=== PATIENT | female | born 1995 | race Caucasian/White ===

== ENCOUNTER 2017-08-11 21:37 | Emergency (ER) | payer OTHER, SELFPAY ==
[2017-08-11] MEDS ORDERED: DIPHENHYDRAMINE 50 MG/ML VIAL ONE (22:30)
[2017-08-11] MEDS ORDERED: KETOROLAC 30 MG/ML INJ ONE (22:30)
[2017-08-11] MEDS ORDERED: METOCLOPRAMIDE 10 MG/2mL INJ ONE (22:30)
[2017-08-11] MEDS ORDERED: NA CHLORIDE 0.9% 1,000 ML ONE (22:30)
--- NOTE | 2017-08-11 23:55 | EDPHYS ---
Physician Documentation [facility] Name: Deja Washburn Age: 22 yrs Sex: Female : 1995 Arrival Date: 08/11/2017 Time: 21:38 Bed 20 Private MD: ED Physician Tony Bates HPI: 08/11 23:48 This 22 yrs old Female presents to ER via Ambulatory with complaints of jr8 Headache, Vomiting. 23:48 The patient complains of pain to the forehead, right temporal area and right occipital jr8 area. The patient describes the headache as throbbing. Onset: The symptoms/episode began/occurred acutely, today. Associated signs and symptoms: Pertinent positives: nausea, Photophobia. Severity of symptoms: At its worst the pain was moderate, in the emergency department the pain is unchanged. Headache History: The patient has had previous headaches and this one is similar to previous episodes. The symptoms are alleviated by nothing. the symptoms are aggravated by lights, movement, noise. The patient has experienced similar episodes in the past, several times. The patient has not recently seen a physician. 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 - Social history:: Smoking status: Patient/guardian denies using tobacco. ROS: 23:48 Eyes: Negative for injury, pain, redness, and discharge, ENT: Negative for injury, jr8 pain, and discharge, Neck: Negative for injury, pain, and swelling, Cardiovascular: Negative for chest pain, palpitations, and edema, Respiratory: Negative for shortness of breath, cough, wheezing, and pleuritic chest pain, Abdomen/GI: Negative for abdominal pain, nausea, vomiting, diarrhea, and constipation, Back: Negative for injury and pain, MS/Extremity: Negative for injury and deformity, Skin: Negative for injury, rash, and discoloration. 23:48 Neuro: Positive for headache, Negative for altered mental status, dizziness, gait disturbance, hearing loss, loss of consciousness, numbness, seizure activity, speech changes, syncope, near syncope, tingling, tinnitus, tremor, visual changes, weakness. Exam: 23:48 Eyes: Pupils equal round and reactive to light, extra-ocular motions intact. Lids and jr8 lashes normal. Conjunctiva and sclera are non-icteric and not injected. Cornea within normal limits. Periorbital areas with no swelling, redness, or edema. ENT: Nares patent. No nasal discharge, no septal abnormalities noted. Tympanic membranes are normal and external auditory canals are clear. Oropharynx with no redness, swelling, or masses, exudates, or evidence of obstruction, uvula midline. Mucous membranes moist. Neck: Trachea midline, no thyromegaly or masses palpated, and no cervical lymphadenopathy. Supple, full range of motion without nuchal rigidity, or vertebral point tenderness. No Meningismus. Cardiovascular: Regular rate and rhythm with a normal S1 and S2. No gallops, murmurs, or rubs. Normal PMI, no JVD. No pulse deficits. Respiratory: Lungs have equal breath sounds bilaterally, clear to auscultation and percussion. No rales, rhonchi or wheezes noted. No increased work of breathing, no retractions or nasal flaring. Abdomen/GI: Soft, non-tender, with normal bowel sounds. No distension or tympany. No guarding or rebound. No evidence of tenderness throughout. Back: No spinal tenderness. No costovertebral tenderness. Full range of motion. Skin: Warm, dry with normal turgor. Normal color with no rashes, no lesions, and no evidence of cellulitis. MS/ Extremity: Pulses equal, no cyanosis. Neurovascular intact. Full, normal range of motion. Neuro: Awake and alert, GCS 15, oriented to person, place, time, and situation. Cranial nerves II-XII grossly intact. Motor strength 5/5 in all extremities. Sensory grossly intact. Cerebellar exam normal. Normal gait. Vital Signs: 21:53 BP 128 / 83; Pulse 89; Resp 20; Temp 97.9; Pulse Ox 100% on R/A; Weight 81.65 kg; aj Height 5 ft. 2 in. (157.48 cm); Pain 10/10; 22:59 BP 125 / 82; Pulse 89; Resp 16; Pulse Ox 100% ; bp 23:39 BP 117 / 83; Pulse 89; Resp 16; Pulse Ox 98% on R/A; mt 08/12 00:02 BP 115 / 63; Pulse 82; Resp 16; Pulse Ox 99% ; bp 08/11 21:53 Body Mass Index 32.92 (81.65 kg, 157.48 cm) aj MDM: 08/11 22:06 Patient medically screened. jr8 23:48 Data reviewed: vital signs, nurses notes, and as a result, I will discharge patient. jr8 Data interpreted: Pulse oximetry: on room air is 98 %. Interpretation: normal. Counseling: I had a detailed discussion with the patient and/or guardian regarding: the historical points, exam findings, and any diagnostic results supporting the discharge/admit diagnosis, the need for outpatient follow up, a neurologist, to return to the emergency department if symptoms worsen or persist or if there are any questions or concerns that arise at home. Response to treatment: the patient's symptoms have markedly improved after treatment. 08/11 22:30 Order name: IV; Complete Time: 22:33 jr8 Administered Medications: 22:40 Drug: NS 0.9% 1000 ml Route: IV; Rate: 1000 ml; Site: right antecubital; bp 08/12 00:01 Follow up: IV Status: Completed infusion; IV Intake: 1000ml bp 08/11 22:40 Drug: Reglan 10 mg Route: IVP; Site: right antecubital; bp 08/12 00:01 Follow up: Response: Marked relief of symptoms bp 08/11 22:41 Drug: Benadryl 25 mg Route: IVP; Site: right antecubital; bp 08/12 00:01 Follow up: Response: Marked relief of symptoms bp 08/11 22:41 Drug: TORadol 30 mg Route: IVP; Site: right antecubital; bp 08/12 00:01 Follow up: Response: Marked relief of symptoms bp Disposition: 08:00 Co-signature as Attending Physician, Tony Bates MD I agree with the assessment and zully plan of care. Disposition: 08/11/17 23:54 Discharged to Home. Impression: Migraine. - Condition is Stable. - Discharge Instructions: Migraine Headache. - Prescriptions for Fioricet 50- 325-40 mg Oral tablet - take 2 tablet by ORAL route every 4 hours as needed not to exceed 6 tablets per 24hrs; 20 tablet. - Medication Reconciliation Form, Thank You Letter, Antibiotic Education, Prescription Opioid Use form. - Follow up: Clifford Ghosh MD; When: 1 week; Reason: Recheck today's complaints, Continuance of care, Re-evaluation by your physician. - Problem is new. - Symptoms have improved. Signatures: Ml Muñoz, RN RN Tony Mohan MD MD cha Roszak, Josh, PA PA jr8 Kevin Hector RN RN bp
--- NOTE | 2017-08-11 23:55 | ER ---
Nurse's Notes [facility] Name: Deja Washburn Age: 22 yrs Sex: Female : 1995 Arrival Date: 08/11/2017 Time: 21:38 Bed 20 Private MD: Diagnosis: Migraine Presentation: 08/11 21:51 Presenting complaint: Patient states: Migraine with nausea and vomiting that started aj today at 1600. Patient reports she has a HX of migraines that usually resolve with Tylenol. Patient did not take anything for headache today. Transition of care: patient was not received from another setting of care. Onset of symptoms was August 11, 2017. Initial Sepsis Screen: Does the patient meet any 2 criteria? No. Patient's initial sepsis screen is negative. Does the patient have a suspected source of infection? No. Patient's initial sepsis screen is negative. Care prior to arrival: None. 21:51 Method Of Arrival: Ambulatory 21:51 Acuity: RICARDO 3 Triage Assessment: 21:53 Headache History: The patient has had previous headaches and this one is similar to previous episodes, and this one is more severe than previous episodes. General: Appears in no apparent distress. uncomfortable, Behavior is calm, cooperative, appropriate for age. Pain: Complains of pain in face and scalp Pain currently is 10 out of 10 on a pain scale. Pain began 4 hours ago. Also complains of nausea. Neuro: Level of Consciousness is awake, alert, obeys commands, Oriented to person, place, time, situation. Respiratory: Airway is patent Respiratory effort is even, unlabored, Respiratory pattern is regular, symmetrical. GI: Reports nausea. Derm: Skin is intact, is healthy with good turgor, Skin is pink, warm \T\ dry. normal. 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 - Social history:: Smoking status: Patient/guardian denies using tobacco. Screenin:18 Abuse screen: Denies threats or abuse. Denies injuries from another. Nutritional bp screening: No deficits noted. Tuberculosis screening: No symptoms or risk factors identified. Fall Risk None identified. Assessment: 22:10 General: Appears in no apparent distress. uncomfortable, slender, Behavior is bp cooperative, appropriate for age, anxious. Pain: Complains of pain in head. Neuro: Level of Consciousness is awake, alert, obeys commands, Oriented to person, place, time, situation, Appropriate for age. Cardiovascular: No deficits noted. Respiratory: Airway is patent Respiratory effort is even, unlabored, Respiratory pattern is regular, symmetrical. GI: No signs and/or symptoms were reported involving the gastrointestinal system. : No signs and/or symptoms were reported regarding the genitourinary system. EENT: No deficits noted. No signs and/or symptoms were reported regarding the EENT system. Parent/caregiver reports the patient having. Derm: No signs and/or symptoms reported regarding the dermatologic system. Musculoskeletal: Circulation, motion, and sensation intact. Range of motion: intact in all extremities. 23:00 Reassessment: PT RESTING QUIETLY, VS STABLE, NO APPARENT ACUTE FINDINGS. bp Vital Signs: 21:53 BP 128 / 83; Pulse 89; Resp 20; Temp 97.9; Pulse Ox 100% on R/A; Weight 81.65 kg; aj Height 5 ft. 2 in. (157.48 cm); Pain 10/10; 22:59 BP 125 / 82; Pulse 89; Resp 16; Pulse Ox 100% ; bp 23:39 BP 117 / 83; Pulse 89; Resp 16; Pulse Ox 98% on R/A; mt 08/12 00:02 BP 115 / 63; Pulse 82; Resp 16; Pulse Ox 99% ; bp 08/11 21:53 Body Mass Index 32.92 (81.65 kg, 157.48 cm) aj ED Course: 08/11 21:38 Patient arrived in ED. es 21:52 Triage completed. aj 21:53 Arm band placed on left wrist. Patient placed in waiting room, Patient notified of wait aj time. 22:06 Kevin Hector, ELBA is Primary Nurse. bp 22:06 Milan Davis PA is PHCP. jr8 22:06 Tony Bates MD is Attending Physician. jr8 22:18 Patient has correct armband on for positive identification. Bed in low position. Call bp light in reach. Side rails up X2. Adult w/ patient. 22:33 Inserted saline lock: 20 gauge in right antecubital area, using aseptic technique. il Blood collected. 23:54 Clifford Ghosh MD is Referral Physician. jr8 08/12 00:03 No provider procedures requiring assistance completed. IV discontinued, intact, bp bleeding controlled, No redness/swelling at site. Pressure dressing applied. Administered Medications: 08/11 22:40 Drug: NS 0.9% 1000 ml Route: IV; Rate: 1000 ml; Site: right antecubital; bp 08/12 00:01 Follow up: IV Status: Completed infusion; IV Intake: 1000ml bp 08/11 22:40 Drug: Reglan 10 mg Route: IVP; Site: right antecubital; bp 08/12 00:01 Follow up: Response: Marked relief of symptoms bp 08/11 22:41 Drug: Benadryl 25 mg Route: IVP; Site: right antecubital; bp 08/12 00:01 Follow up: Response: Marked relief of symptoms bp 08/11 22:41 Drug: TORadol 30 mg Route: IVP; Site: right antecubital; bp 08/12 00:01 Follow up: Response: Marked relief of symptoms bp Intake: 00:01 IV: 1000ml; Total: 1000ml. bp Outcome: 08/11 23:54 Discharge ordered by . jr8 08/12 00:04 Discharged to home ambulatory, with family. bp Condition: stable Discharge instructions given to patient, Instructed on discharge instructions, follow up and referral plans. medication usage, Demonstrated understanding of instructions, follow-up care, medications, Prescriptions given X 1. 00:05 Patient left the ED. bp Signatures: Ml Muñoz, RN Adilia Xie Josh, PA PA jr8 Juliann Tee mt, Brian, RN RN bp
[2017-08-12 01:02] VITALS: TEMP 97.9
[2017-08-12 01:05] VITALS: BP 115/63; O2SAT 99
== END 2017-08-12 00:05 | disposition home or self-care (01) ==
LOC: ER 21:37
DX: G43.909 Migraine, unspecified, not intractable, without status migrainosus (principal); Z88.1 Allergy status to other antibiotic agents
CPT/HCPCS: 96361; 96374; 96375; 99284; J2765; J7030

== ENCOUNTER 2022-03-22 14:50 | Emergency (ER) | payer SELFPAY ==
--- OUTSIDE RECORDS SUMMARY | 2022-03-22 14:52 | XMS REPORT | Continuity of Care Document ---
:1995 Author Organization [facility] t Address [address] [place] [address] Care Team Providers Name Role Phone Joselin Rodriguez Attending Clinician Unavailable Makenzie Dillard Attending Clinician Unavailable ALEC KARIMI Attending Clinician Unavailable Payers Payer Name Policy Type Policy Number Effective Date Expiration Date S dorita [id number]-[id number] 2020 00:00:00 Problems Condition Condition Condition Status Onset Resolution Last Treating Co mments Source Name Details Category Date Date Treatment Clinician Date Migraine Migraine Problem Active Commo n headache [facility] Allergies, Adverse Reactions, Alerts Allergy Allergy Status Severity Reaction(s) Onset Inactive Treating Comm ents Source Name Type Date Date Clinician AMOXICIL DRUG Active Unknown-Cmnt Un raven SIMONI 12-14 ity of 00:00: [place] [facility] amoxicil amoxicil Active rash Common tess [facility] Social History Social Habit Start Date Stop Date Quantity Comments Source Sex Assigned At Com mon [facility] History of Tobacco Use Co mmon [facility] Smoking Status Start Date Stop Date Source Never Smoker [facility] Medications Ordered Filled Start Stop Current Ordering Indication Dosage Frequency Signature Comments Components Source Medication Medication Date Date Medication? Clinician (SIG) Name Name MethylPREDN MethylPREDN No MethylPRED ISolone 4 ISolone 4 05-16 NISolone 4 MG MG 00:00: MG 00 Mupirocin 2 Mupirocin 2 2020- No 1{appli TID Mupirocin % % 05-16 cation_ 2 % 00:00: 00:00 to_affe 00 :00 cted_ar ea} Zyrtec Zyrtec 2020- No 1{table BID Zyrtec Allergy 10 Allergy 10 05-16 t} Allergy 10 MG MG 00:00: 00:00 MG 00 :00 MethylPREDN MethylPREDN 2020- No MethylPRED ISolone 4 ISolone 4 05-16 NISolone 4 MG MG 00:00: 00:00 MG 00 :00 Aspirin 325 Aspirin 325 2019-04 No 1{table QD Aspirin MG MG 18 t} 325 MG 00:00: 00 Aspirin 325 Aspirin 325 2019-04 No 1{table QD Aspirin MG MG 18 t} 325 MG 00:00: 00 Aspirin 325 Aspirin 325 2019-04 No 1{table QD Aspirin MG MG 18 t} 325 MG 00:00: 00 Acetaminoph Acetaminoph 2019-04- No 1{table BID Acetaminop en 500 MG en 500 MG 05-06 t_as_ne hen 500 MG 00:00: 00:00 eded} 00 :00 Sumatriptan Sumatriptan No BID Sumatripta Succinate Succinate n 50 MG 50 MG Succinate 50 MG Magnesium Magnesium No 2{table QD Magnesium 200 MG 200 MG ts_with 200 MG _a_meal } Magnesium Magnesium No 2{table QD Magnesium 200 MG 200 MG ts_with 200 MG _a_meal } Terbinafine Terbinafine No 1{appli QD Terbinafin HCl 1 % HCl 1 % cation} e HCl 1 % Hydrocortis Hydrocortis No 1{appli BID Hydrocorti one 0.5 % one 0.5 % cation} sone 0.5 % Sumatriptan Sumatriptan No BID Sumatripta Succinate Succinate n 50 MG 50 MG Succinate 50 MG Terbinafine Terbinafine No 1{appli QD Terbinafin HCl 1 % HCl 1 % cation} e HCl 1 % Sumatriptan Sumatriptan No BID Sumatripta Succinate Succinate n 50 MG 50 MG Succinate 50 MG Magnesium Magnesium No 2{table QD Magnesium 200 MG 200 MG ts_with 200 MG _a_meal } Hydrocortis Hydrocortis No 1{appli BID Hydrocorti one 0.5 % one 0.5 % cation} sone 0.5 % Vital Signs Vital Name Observation Time Observation Value Comments Source height 2020-05-16 08:20:00 64 [in_i] [facility] weight 2020-05-16 08:20:00 193.4 [lb_av] [facility] temperature 2020-05-16 08:20:00 98.4 [degF] [facility] bmi 2020-05-16 08:20:00 33.19 kg/m2 [facility] oximetry 2020-05-16 08:20:00 97 % [facility] respiratory rate 2020-05-16 08:20:00 15 /min Comm on [facility] blood pressure 2020-05-16 08:20:00 124 mm[Hg] Common [facility] systolic [facility] blood pressure 2020-05-16 08:20:00 76 mm[Hg] [facility] - diastolic [facility] height 2020-03-06 08:00:00 64 [in_i] [facility] weight 2020-03-06 08:00:00 193.8 [lb_av] [facility] temperature 2020-03-06 08:00:00 96.6 [degF] [facility] bmi 2020-03-06 08:00:00 33.26 kg/m2 [facility] oximetry 2020-03-06 08:00:00 99 % [facility] respiratory rate 2020-03-06 08:00:00 18 /min Comm on [facility] blood pressure 2020-03-06 08:00:00 139 mm[Hg] Common [facility] - systolic [facility] blood pressure 2020-03-06 08:00:00 73 mm[Hg] [facility] Procedures This patient has no known procedures. Encounters Start End Encounter Admission Attending Care Care Encounter Source Date/Time Date/Time Type Type Clinicians Facility Department ID 2021-05-14 Outpatient Joselin Rodriguez STLMLC STLMLC [id number] Common 13:27:[id number] [facility] 2021-05-14 Outpatient Gilma, STLMLC STLMLC [id number] Common 12:26:[id number] [facility] 2021-05-14 Outpatient Gilma, STLMLC STLMLC [id number] Common 12:25:[id number] [facility] 2021-05-14 Outpatient Gilma, STLMLC STLMLC [id number] Common 12:16:[id number] [facility] 2021-05-14 Outpatient STLMLC STLMLC [id number] Common 12:06:[id number] [facility] 2020-09-04 2020-09-04 Outpatient R AKINSIALEJANDRINA, [facility] [id number] [employer] 12:45:00 12:45:00 ALEC patino [facility] 2020-06-07 2020-06-07 (TEL) STLMLC STLMLC [id number] Co mmon 00:00:00 00:00:00 [facility] 2020-05-16 2020-05-16 OFFICE STLMLC STLMLC [id number] Co mmon 00:00:00 00:00:00 [facility]IT [facility] PT - [facility]I LEVEL 2 [facility] 2020-03-06 2020-03-06 OFFICE STLMLC STLMLC [id number] Co mmon 00:00:00 00:00:00 VISIT [facility] PT LEVEL 3 - CHI [facility] Results This patient has no known results.
--- NOTE | 2022-03-22 16:25 | RAD REPORT ---
EXAM DESCRIPTION: RAD - Hand Right 3 View - 03/22/2022 4:18 pm CLINICAL HISTORY: PAIN, trauma to the fourth digit COMPARISON: No comparisons FINDINGS: The fourth digit middle phalanx is fractured at the shaft head junction. Very minimal vent ral angulation is present in the distal fracture fragment. No distraction or overlap. DIP joint is in tact. No other fourth digit acute bone or joint finding. The remainder the hand shows no acute bone or joint finding. No foreign body or significant soft tiss ue abnormality. IMPRESSION: Fourth digit middle phalanx fracture as detailed.
[2022-03-22] MEDS ORDERED: BUPIVACAINE 0.5% PF 10 ML VIAL ONE (16:36)
--- NOTE | 2022-03-22 17:08 | ER ---
Nurse's Notes [facility] Name: Deja Washburn Age: 26 yrs Sex: Female : 1995 Arrival Date: 03/22/2022 Time: 14:50 Bed 10 Private MD: Diagnosis: Right 4th Phalanx Fracture Presentation: 03/22 15:05 Chief complaint: Patient states: Twisted fourth digit to right hand today. C/O pain to ld1 right hand/finger. Coronavirus screen: At this time, the client does not indicate any symptoms associated with coronavirus-19. Ebola Screen: No symptoms or risks identified at this time. Initial Sepsis Screen: Does the patient meet any 2 criteria? No. Patient's initial sepsis screen is negative. Does the patient have a suspected source of infection? No. Patient's initial sepsis screen is negative. Risk Assessment: Do you want to hurt yourself or someone else? Patient reports no desire to harm self or others. Onset of symptoms was March 22, 2022. 15:05 Method Of Arrival: Ambulatory ld1 15:05 Acuity: RICARDO 4 ld1 Triage Assessment: 15:06 General: Appears in no apparent distress. comfortable, Behavior is calm, cooperative, ld1 appropriate for age. Pain: Complains of pain in right hand Pain does not radiate. Pain currently is 4 out of 10 on a pain scale. Quality of pain is described as throbbing. EENT: No signs and/or symptoms were reported regarding the EENT system. Neuro: Level of Consciousness is awake, alert, obeys commands, Oriented to person, place, time, situation. Cardiovascular: Capillary refill < 3 seconds Patient's skin is warm and dry. Respiratory: Airway is patent Respiratory effort is even, unlabored. GI: Abdomen is flat, non-distended. : No signs and/or symptoms were reported regarding the genitourinary system. Derm: No signs and/or symptoms reported regarding the dermatologic system. Musculoskeletal: No signs and/or symptoms reported regarding the musculoskeletal system. 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 - Social history:: Smoking status: Patient denies any tobacco usage or history of. Patient/guardian denies using alcohol. Vital Signs: 15:05 BP 129 / 71; Pulse 75; Resp 18; Temp 98.1(TE); Pulse Ox 100% on R/A; Weight 58.97 kg; ld1 Height 5 ft. 4 in. (162.56 cm); Pain 4/10; 15:05 Body Mass Index 22.31 (58.97 kg, 162.56 cm) ld1 ED Course: 14:50 Patient arrived in ED. rg4 14:51 Marco Antonio Landers PA is PHCP. [facility] 14:51 Tony Bates MD is Attending Physician. [facility] 15:06 Triage completed. ld1 15:06 Arm band placed on left wrist. ld1 16:20 Hand Right 3 View XRAY In Process Unspecified. EDMS 17:07 Andrea Henderson MD is Referral Physician. [facility] 17:23 Patient did not have IV access during this emergency room visit. ld1 Administered Medications: No medications were administered Outcome: 17:08 Discharge ordered by . [facility] 17:23 Discharged to home ambulatory. ld1 17:23 Condition: stable 17:23 Discharge instructions given to patient, Instructed on discharge instructions, follow up and referral plans. Demonstrated understanding of instructions, follow-up care. 17:24 Patient left the ED. ld1 Signatures: Dispatcher [employer] EDMS Marco Antonio Landers PA PA jmm Garcia, Rubi rg4 Mahsa Lopez, RN RN ld1
--- NOTE | 2022-03-22 17:08 | EDPHYS ---
Physician Documentation [facility] Name: Deja Washburn Age: 26 yrs Sex: Female : 1995 Arrival Date: 03/22/2022 Time: 14:50 Bed 10 Private MD: ED Physician Tony Bates HPI: 03/22 17:03 This 26 yrs old Female presents to ER via Ambulatory with complaints of Finger jmm Injury. 17:03 The patient or guardian reports injury, pain. Onset: The symptoms/episode jmm began/occurred acutely. Modifying factors: The symptoms are alleviated by nothing, the symptoms are aggravated by nothing. This is a 26 year old female with a history of migraines that presents to the ED with complaints of right 4th finger pain after getting her hand caught in a fence. Denies other injury. . 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 - Social history:: Smoking status: Patient denies any tobacco usage or history of. Patient/guardian denies using alcohol. ROS: 17:03 Constitutional: Negative for fever, chills, and weight loss, Cardiovascular: Negative jmm for chest pain, palpitations, and edema, Respiratory: Negative for shortness of breath, cough, wheezing, and pleuritic chest pain. 17:03 MS/extremity: Positive for pain. 17:03 All other systems are negative. Exam: 17:03 Constitutional: This is a well developed, well nourished patient who is awake, alert, jmm and in no acute distress. Head/Face: atraumatic. Eyes: EOMI, no conjunctival erythema appreciated ENT: Moist Mucus Membranes Neck: Trachea midline, Supple Chest/axilla: Normal chest wall appearance and motion. Cardiovascular: Regular rate and rhythm. No edema appreciated Respiratory: Normal respirations, no respiratory distress appreciated Abdomen/GI: Non distended Skin: General appearance color normal 17:03 Back: Normal ROM 17:03 Musculoskeletal/extremity: left 4th finger ttp , < 2 sec dist cap refill, NVI. 17:03 Skin: Appearance: Color: normal in color. 17:03 Neuro: Motor: is normal. Vital Signs: 15:05 BP 129 / 71; Pulse 75; Resp 18; Temp 98.1(TE); Pulse Ox 100% on R/A; Weight 58.97 kg; ld1 Height 5 ft. 4 in. (162.56 cm); Pain 4/10; 15:05 Body Mass Index 22.31 (58.97 kg, 162.56 cm) ld1 MDM: 15:05 Patient medically screened. [facility] 17:06 Data reviewed: vital signs, nurses notes. Counseling: I had a detailed discussion with [facility] the patient and/or guardian regarding: the historical points, exam findings, and any diagnostic results supporting the discharge/admit diagnosis, radiology results, the need for outpatient follow up, to return to the emergency department if symptoms worsen or persist or if there are any questions or concerns that arise at home. 12 15:05 Order name: Hand Right 3 View XRAY; Complete Time: 16:27 [facility] 03/22 16:28 Order name: [facility] [place]. Order: finger splint 4th finger, rodrick tape; Complete Time: 16:55 [facility] Administered Medications: No medications were administered Disposition Summary: 03/22/22 17:08 Discharge Ordered Location: Home [facility] Condition: Stable [facility] Diagnosis - Right 4th Phalanx Fracture [facility] Followup: [facility] - With: Andrea Henderson MD - When: 2 - 3 days - Reason: Recheck today's complaints, Continuance of care, Re-evaluation by your physician Discharge Instructions: - Discharge Summary Sheet [facility] - Finger Fracture, Adult [facility] Forms: - Medication Reconciliation Form [facility] - Thank You Letter [facility] - Antibiotic Education [facility] - Prescription Opioid Use [facility] Prescriptions: - Ultracet 37.5-325 mg Oral Tablet - take 1 tablet by ORAL route every 6 hours - for up to 5 days; do not exceed 8 jmm tablets per day.; 12 tablet; Refills: 0, Product Selection Permitted Signatures: Dispatcher [employer] EDMarco Antonio Lima PA PA jmm Dibbern, Lauren, RN RN ld1
[2022-03-22 17:33] VITALS: BP 129/71; TEMP 98.1; O2SAT 100
== END 2022-03-22 17:24 | disposition home or self-care (01) ==
LOC: ER 14:50
DX: S62.624A Displaced fracture of middle phalanx of right ring finger, initial encounter for closed fracture (principal)
CPT/HCPCS: 99283

== ENCOUNTER 2022-09-14 10:25 | Emergency (ER) | payer OTHER, SELFPAY ==
--- OUTSIDE RECORDS SUMMARY | 2022-09-14 10:31 | XMS REPORT | Continuity of Care Document ---
:1995 Author Organization [facility] t Address [address] [place] [address] Care Team Providers Name Role Phone Bernarda No Primary Care Physician [phone] Joselin Rodriguez Attending Clinician Unavailable Makenzie Dillard Attending Clinician Unavailable BERNARDA SYLVESTER Attending Clinician Unavailable Bernarda No Attending Clinician [phone] Ultrasound, Julianaadrian Attending Clinician Unavailable Irasema Hi MD Attending Clinician [phone] IRASEMA HI Attending Clinician Unavailable Doctor Unassigned, [place] Attending Clinician Unavailable Lab, [facility] Attending Clinician Unavailable Jose L Morales MD Attending Clinician JOSE L MORALES Attending Clinician Unavailable JOSE L MORALES Attending Clinician Unavailable MARIANNE GALLOWAY Attending Clinician Unavailable Trimester, [facility] Attending Clinician Unavailable Marianne Galloway MD Attending Clinician HOLLY MACIAS Attending Clinician Unavailable Holly Boyd Attending Clinician Payers Payer Name Policy Type Policy Number Effective Date Expiration Date Christy kevin FORMERLY [facility] [id number] 2022 CHOICE [place] STAR 00:00:00 MEDICAID [facility] [id number] 2022 2022 00:00:00 00:00:00 Problems Condition Condition Condition Status Onset Resolution Last Treating Co mments Source Name Details Category Date Date Treatment Clinician Date Overweight Overweight Disease Active U nivers 5-02 ity of 00:00: [place] [facility] Yeast Yeast Disease Active Univers dermatitis dermatitis 4-21 it y of 00:00: [place] [facility] UTI in UTI in Disease Active Overview: Univer s 1-13 Formattin i ty of 00:00: g of this [place] 00 note Medical might be Branch different from the original. pendign sydni, still positive- now neg Supervisio Supervisio Disease Active U nivers n of n of 1-10 ity of high[place]risk [place] [facility] [place] Multiparit Multiparit Disease Active U nivers y y 1-10 ity of 00:00: [place] [facility] Over Over Disease Active Univers weight weight 5-19 ity of 00:00: [place] [facility] Other Other Disease Active Univers general general 5-19 ity of counseling [place] and advice and advice 00 D[facility] dical for [facility] Branch contracept contracept cristina cristina management management Boil Boil Disease Active Univers 5-19 ity of 00:00: [place] [facility] Papanicola Papanicola Disease Active U nivers ou smear ou smear 8-28 ity of 00:00: [place] [facility] Obesity Obesity Disease Active Univers (BMI (BMI 2-27 ity of 30.0-34.9) 30.0-34.9) [place] 00 [place] Presence Presence Disease Active Unive rs of of 2-27 ity of intrauteri intrauteri 00:[place] 00 Medical contracept contracept Br anch cristina device cristina device Migraine Migraine Problem Commo n headache [facility] [id number] Closed Problem Common displaced Spirit fracture - [facility] of middle [facility] phalanx of [facility] right ring Medica l finger, Center initial encounter Allergies, Adverse Reactions, Alerts Allergy Allergy Status Severity Reaction(s) Onset Inactive Treating Comm ents Source Name Type Date Date Clinician AMOXICIL DRUG Active Unknown-Cmnt Un raven TESS INGREDI 12-14 ity of 00:00: [place] 00 Medical Branch Amoxicil Propensi Active Unknown - Uni vers tess ty to See comments 12-14 ity of adverse 00:00: [place] reaction 00 [facility] amoxicil amoxicil Active rash Common tess tess [facility] NO KNOWN Drug Active Univers ALLERGIE Class ity of [facility] Social History Social Habit Start Date Stop Date Quantity Comments Source ASSERTION 2022-04-07 University 00:00:00 [facility] History of Common Spirit - Tobacco Use [facility] Exposure to 2022-08-08 2022-08-18 Not sure [facility] SARS-CoV-2 00:00:00 08:54:00 [facility] (event) [place] Alcohol intake 2022-05-11 2022-05-11 Current [facility] 00:00:00 00:00:00 non-drinker of [facility] alcohol (finding) [place] Tobacco use and 2022-04-28 2022-04-28 Smokeless tobacco Un iversity of exposure 00:00:00 00:00:00 non-user [facility] Sex Assigned At [birth year] Universit y of 00:00:00 00:00:00 [facility] Smoking Status Start Date Stop Date Source Never smoked tobacco [facility] Medications Ordered Filled Start Stop Current Ordering Indication Dosage Frequency Signature Comments Components Source Medication Medication Date Date Medication? Clinician (SIG) Name Name clotrimazol Yes [id number] [facility] (LOTRIMIN 4-21 area(s) at it y of AF, 00:00: bedtime. [place] CLOTRIMAZOL Medical E,) 1 % Branch topical cream clotrimazol 0 Yes [id number] Apply to Univers e (LOTRIMIN 4-21 area(s) at it y of AF, 00:00: bedtime. [place] CLOTRIMAZOL Medical E,) 1 % Branch topical cream clotrimazol Yes [id number] Apply to Univers e (LOTRIMIN 4-21 area(s) at it y of AF, 00:00: bedtime. [place] CLOTRIMAZOL Medical E,) 1 % Branch topical cream clotrimazol 0 Yes [id number] Apply to Univers e (LOTRIMIN 4-21 area(s) at it y of AF, 00:00: bedtime. [place] CLOTRIMAZOL Medical E,) 1 % Branch topical cream fluconazole 2022- Yes [id number] 150mg Take 1 Univers (DIFLUCAN) 4-21 04-22 tablet by ity of 150 mg 00:00: 04:59 [place] tablet 00 :00 now for 1 Medical dose. Branch PNV 67-iron 2022-0 Yes [id number] 1{each} Take 1 Univers ps-folate 2-10 Each by ity of no.1-dha 00:00: mouth [place] (VITAFOL 00 daily. Medical ULTRA) 29 Branch mg iron- 1 mg-200 mg Cap PNV 67-iron 2022-0 Yes [id number] 1{each} Take 1 Univers ps-folate 2-10 Each by ity of no.1-dha 00:00: mouth [place] (VITAFOL 00 daily. Medical ULTRA) 29 Branch mg iron- 1 mg-200 mg Cap PNV 67-iron 2022-0 Yes [id number] 1{each} Take 1 Univers ps-folate 2-10 Each by ity of no.1-dha 00:00: mouth [place] (VITAFOL 00 daily. Medical ULTRA) 29 Branch mg iron- 1 mg-200 mg Cap PNV 67-iron 2022-0 Yes [id number] 1{each} Take 1 Univers ps-folate 2-10 Each by ity of no.1-dha 00:00: mouth [place] (VITAFOL 00 daily. Medical ULTRA) 29 Branch mg iron- 1 mg-200 mg Cap PNV 67-iron 2022-0 Yes [id number] 1{each} Take 1 Univers ps-folate 2-10 Each by ity of no.1-dha 00:00: mouth [place] (VITAFOL 00 daily. Medical ULTRA) 29 Branch mg iron- 1 mg-200 mg Cap PNV 67-iron 2022-0 Yes [id number] 1{each} Take 1 Univers ps-folate 2-10 Each by ity of no.1-dha 00:00: mouth [place] (VITAFOL 00 daily. Medical ULTRA) 29 Branch mg iron- 1 mg-200 mg Cap PNV 67-iron 2022-0 Yes [id number] 1{each} Take 1 Univers ps-folate 2-10 Each by ity of no.1-dha 00:00: mouth [place] (VITAFOL 00 daily. Medical ULTRA) 29 Branch mg iron- 1 mg-200 mg Cap PNV 67-iron 2022-0 Yes [id number] 1{each} Take 1 Univers ps-folate 2-10 Each by ity of no.1-dha 00:00: mouth [place] (VITAFOL 00 daily. Medical ULTRA) 29 Branch mg iron- 1 mg-200 mg Cap PNV 67-iron 2022-0 Yes [id number] 1{each} Take 1 Univers ps-folate 2-10 Each by ity of no.1-dha 00:00: mouth [place] (VITAFOL 00 daily. Medical ULTRA) 29 Branch mg iron- 1 mg-200 mg Cap PNV 67-iron 2022-0 Yes [id number] 1{each} Take 1 Univers ps-folate 2-10 Each by ity of no.1-dha 00:00: mouth [place] (VITAFOL 00 daily. Medical ULTRA) 29 Branch mg iron- 1 mg-200 mg Cap PNV 67-iron 2022-0 Yes [id number] 1{each} Take 1 Univers ps-folate 2-10 Each by ity of no.1-dha 00:00: mouth [place] (VITAFOL 00 daily. Medical ULTRA) 29 Branch mg iron- 1 mg-200 mg Cap PNV 67-iron 2022-0 Yes [id number] 1{each} Take 1 Univers ps-folate 2-10 Each by ity of no.1-dha 00:00: mouth [place] (VITAFOL 00 daily. Medical ULTRA) 29 Branch mg iron- 1 mg-200 mg Cap PNV 67-iron 2022-0 Yes [id number] 1{each} Take 1 Univers ps-folate 2-10 Each by ity of no.1-dha 00:00: mouth [place] (VITAFOL 00 daily. Medical ULTRA) 29 Branch mg iron- 1 mg-200 mg Cap PNV 67-iron 2022-0 Yes [id number] 1{each} Take 1 Univers ps-folate 2-10 Each by ity of no.1-dha 00:00: mouth [place] (VITAFOL 00 daily. Medical ULTRA) 29 Branch mg iron- 1 mg-200 mg Cap PNV 67-iron 2022-0 Yes [id number] 1{each} Take 1 Univers ps-folate 2-10 Each by ity of no.1-dha 00:00: mouth [place] (VITAFOL 00 daily. Medical ULTRA) 29 Branch mg iron- 1 mg-200 mg Cap PNV 67-iron 2022-0 Yes [id number] 1{each} Take 1 Univers ps-folate 2-10 Each by ity of no.1-dha 00:00: mouth [place] (VITAFOL 00 daily. Medical ULTRA) 29 Branch mg iron- 1 mg-200 mg Cap PNV 67-iron 2022-0 Yes [id number] 1{each} Take 1 Univers ps-folate 2-10 Each by ity of no.1-dha 00:00: mouth [place] (VITAFOL 00 daily. Medical ULTRA) 29 Branch mg iron- 1 mg-200 mg Cap PNV 67-iron 2022-0 Yes [id number] 1{each} Take 1 Univers ps-folate 2-10 Each by ity of no.1-dha 00:00: mouth [place] (VITAFOL 00 daily. Medical ULTRA) 29 Branch mg iron- 1 mg-200 mg Cap PNV 67-iron 2022-0 Yes [id number] 1{each} Take 1 Univers ps-folate 2-10 Each by ity of no.1-dha 00:00: mouth [place] (VITAFOL 00 daily. Medical ULTRA) 29 Branch mg iron- 1 mg-200 mg Cap PNV 67-iron 2022-0 Yes [id number] 1{each} Take 1 Univers ps-folate 2-10 Each by ity of no.1-dha 00:00: mouth [place] (VITAFOL 00 daily. Medical ULTRA) 29 Branch mg iron- 1 mg-200 mg Cap PNV 67-iron 2022-0 Yes [id number] 1{each} Take 1 Univers ps-folate 2-10 Each by ity of no.1-dha 00:00: mouth [place] (VITAFOL 00 daily. Medical ULTRA) 29 Branch mg iron- 1 mg-200 mg Cap PNV 67-iron Yes [id number] 1{each} Take 1 Univers ps-folate 2-10 Each by ity of no.1-dha 00:00: mouth [place] (VITAFOL 00 daily. Medical ULTRA) 29 Branch mg iron- 1 mg-200 mg Cap ampicillin 0 2022- No [id number] 500mg Take 1 Univers 500 mg 2-10 -21 capsule by ity of capsule 00:00: 05:59 mouth 4 [place] 00 :00 (four) Medical times [place] daily for 10 days. ampicillin 2022-0 2022- No [id number] 500mg Take 1 Univers 500 mg 2-10 - capsule by ity of capsule 00:00: 05:59 mouth 4 [place] 00 :00 (four) Medical times [place] daily for 10 days. Nitrofurant 2022-0 2022- No [id number] 100mg Take 1 Univers oin&Nit. 05-01 capsule by ity of [place] 00:00: 05:59 mouth in [place] (MACROBID) 00 :00 the Medical 100 mg morning Branch capsule and 1 capsule in the evening. Do all this for 10 days. Nitrofurant 2022-2022- No [id number] 100mg Take 1 Univers oin&Nit. 05-01 capsule by ity of [place] 00:00: 05:59 mouth in [place] (MACROBID) 00 :00 the Medical 100 mg morning Branch capsule and 1 capsule in the evening. Do all this for 10 days. Nitrofurant 2022-0 2022- No [id number] 100mg Take 1 Univers oin&Nit. 05-01 capsule by ity of [place] 00:00: 05:59 mouth in [place] (MACROBID) 00 :00 the Medical 100 mg morning Branch capsule and 1 capsule in the evening. Do all this for 10 days. Nitrofurant 2022-0 2022- No [id number] 100mg Take 1 Univers oin&Nit. 05-01 capsule by ity of [place] 00:00: 05:59 mouth in [place] (MACROBID) 00 :00 the Medical 100 mg morning Branch capsule and 1 capsule in the evening. Do all this for 10 days. Nitrofurant 2023-0 2023- No [id number] 100mg Take 1 Univers oin&Nit. 05-01 capsule by ity of [place] 00:00: 05:59 mouth in [place] (MACROBID) 00 :00 the Medical 100 mg morning Branch capsule and 1 capsule in the evening. Do all this for 10 days. Nitrofurant 3-0 2023- No [id number] 100mg Take 1 Univers oin&Nit. 05-01 capsule by ity of [place] 00:00: 05:59 mouth in [place] (MACROBID) 00 :00 the Medical 100 mg morning Branch capsule and 1 capsule in the evening. Do all this for 10 days. Nitrofurant 3-0 2023- No [id number] 100mg Take 1 Univers oin&Nit. 05-01 capsule by ity of [place] 00:00: 05:59 mouth in [place] (MACROBID) 00 :00 the Medical 100 mg morning Branch capsule and 1 capsule in the evening. Do all this for 10 days. Nitrofurant 3-0 2023- No [id number] 100mg Take 1 Univers oin&Nit. 05-01 capsule by ity of [place] 00:00: 05:59 mouth in [place] (MACROBID) 00 :00 the Medical 100 mg morning Branch capsule and 1 capsule in the evening. Do all this for 10 days. Nitrofurant 2023-0 2023- No [id number] 100mg Take 1 Univers oin&Nit. 05-01 capsule by ity of [place] 00:00: 05:59 mouth in [place] (MACROBID) 00 :00 the Medical 100 mg morning Branch capsule and 1 capsule in the evening. Do all this for 10 days. Nitrofurant 2023-0 2023- No [id number] 100mg Take 1 Univers oin&Nit. 05-01 capsule by ity of [place] 00:00: 05:59 mouth in [place] (MACROBID) 00 :00 the Medical 100 mg morning Branch capsule and 1 capsule in the evening. Do all this for 10 days. Nitrofurant 2022- No [id number] 100mg Take 1 Univers oin&Nit. 05-01 capsule by ity of [place] 00:00: 05:59 mouth in [place] (MACROBID) 00 :00 the Medical 100 mg morning Branch capsule and 1 capsule in the evening. Do all this for 10 days. intrauterin 2022- No 1{IUD} 1 Intra Univers e device 04-30 Uterine ity of (PARAGARD T 13:26: 00:00 Device by [place] 380A) IUD 05 :00 Intrauteri Medi gabriel ne route Branch once now. intrauterin 2022- No 1{IUD} 1 Intra Univers e device 04-30 Uterine ity of (PARAGARD T 13:26: 00:00 Device by [place] 380A) IUD 05 :00 Intrauteri Medi gabriel ne route Branch once now. intrauterin 2022- No 1{IUD} 1 Intra Univers e device 04-30 Uterine ity of (PARAGARD T 13:26: 00:00 Device by [place] 380A) IUD 05 :00 Intrauteri Medi gabriel ne route Branch once now. intrauterin 2022- No 1{IUD} 1 Intra Univers e device 04-30 Uterine ity of (PARAGARD T 13:26: 00:00 Device by [place] 380A) IUD 05 :00 Intrauteri Medi gabriel ne route Branch once now. phentermine 2022-0 Yes 37.5mg Take 37.5 Univers 37.5 mg 1-03 mg by ity of tablet 00:00: mouth in [place] 00 the Medical morning. Branch phentermine 3-0 Yes 37.5mg Take 37.5 Univers 37.5 mg 1-03 mg by ity of tablet 00:00: mouth in [place] [address] the Medical morning. Branch phentermine 2023-0 Yes 37.5mg Take 37.5 Univers 37.5 mg 1-03 mg by ity of tablet 00:00: mouth in [place] [address] the Medical morning. Branch phentermine 2023-0 Yes 37.5mg Take 37.5 Univers 37.5 mg 1-03 mg by ity of tablet 00:00: mouth in [place] 00 the Medical morning. Branch phentermine 2023-0 Yes 37.5mg Take 37.5 Univers 37.5 mg 1-03 mg by ity of tablet 00:00: mouth in [place] the Medical morning. Branch phentermine 2023-0 Yes 37.5mg Take 37.5 Univers 37.5 mg 1-03 mg by ity of tablet 00:00: mouth in [place] the Medical morning. Branch phentermine 2023-0 Yes 37.5mg Take 37.5 Univers 37.5 mg 1-03 mg by ity of tablet 00:00: mouth in [place] the Medical morning. Branch phentermine 2023-0 Yes 37.5mg Take 37.5 Univers 37.5 mg 1-03 mg by ity of tablet 00:00: mouth in [place] the Medical morning. Branch phentermine 2023-0 Yes 37.5mg Take 37.5 Univers 37.5 mg 1-03 mg by ity of tablet 00:00: mouth in [place] the Medical morning. Branch phentermine 2023-0 Yes 37.5mg Take 37.5 Univers 37.5 mg 1-03 mg by ity of tablet 00:00: mouth in [place] the Medical morning. Branch phentermine 2023-0 Yes 37.5mg Take 37.5 Univers 37.5 mg 1-03 mg by ity of tablet 00:00: mouth in [place] the Medical morning. Branch phentermine 2023-0 Yes 37.5mg Take 37.5 Univers 37.5 mg 1-03 mg by ity of tablet 00:00: mouth in [place] the Medical morning. Branch phentermine 2023-0 Yes 37.5mg Take 37.5 Univers 37.5 mg 1-03 mg by ity of tablet 00:00: mouth in [place] the Medical morning. Branch phentermine 2023-0 Yes 37.5mg Take 37.5 Univers 37.5 mg 1-03 mg by ity of tablet 00:00: mouth in [place] the Medical morning. Branch phentermine 2023-0 Yes 37.5mg Take 37.5 Univers 37.5 mg 1-03 mg by ity of tablet 00:00: mouth in [place] the Medical morning. Branch phentermine 2023-0 Yes 37.5mg Take 37.5 Univers 37.5 mg 1-03 mg by ity of tablet 00:00: mouth in [place] the Medical morning. Branch phentermine 2023-0 Yes 37.5mg Take 37.5 Univers 37.5 mg 1-03 mg by ity of tablet 00:00: mouth in [place] the Medical morning. Branch phentermine 2023-0 Yes 37.5mg Take 37.5 Univers 37.5 mg 1-03 mg by ity of tablet 00:00: mouth in [place] the Medical morning. Branch phentermine 2023-0 Yes 37.5mg Take 37.5 Univers 37.5 mg 1-03 mg by ity of tablet 00:00: mouth in [place] the Medical morning. Branch phentermine 2023-0 Yes 37.5mg Take 37.5 Univers 37.5 mg 1-03 mg by ity of tablet 00:00: mouth in [place] the Medical morning. Branch phentermine 2023-0 Yes 37.5mg Take 37.5 Univers 37.5 mg 1-03 mg by ity of tablet 00:00: mouth in [place] the Medical morning. Branch phentermine 2023-0 Yes 37.5mg Take 37.5 Univers 37.5 mg 1-03 mg by ity of tablet 00:00: mouth in [place] the Medical morning. Branch phentermine 2023-0 Yes 37.5mg Take 37.5 Univers 37.5 mg 1-03 mg by ity of tablet 00:00: mouth in [place] the Medical morning. Branch phentermine 2023-0 Yes 37.5mg Take 37.5 Univers 37.5 mg 1-03 mg by ity of tablet 00:00: mouth in [place] the Medical morning. Branch phentermine 2023-0 Yes 37.5mg Take 37.5 Univers 37.5 mg 1-03 mg by ity of tablet 00:00: mouth in [place] the Medical morning. Branch phentermine 2023-0 Yes 37.5mg Take 37.5 Univers 37.5 mg 1-03 mg by ity of tablet 00:00: mouth in [place] 00 the Medical morning. Branch phentermine 2023-0 Yes 37.5mg Take 37.5 Univers 37.5 mg 1-03 mg by ity of tablet 00:00: mouth in [place] 00 the Medical morning. Branch phentermine 2023-0 Yes 37.5mg Take 37.5 Univers 37.5 mg 1-03 mg by ity of tablet 00:00: mouth in [place] the Medical morning. Branch phentermine 2023-0 Yes 37.5mg Take 37.5 Univers 37.5 mg 1-03 mg by ity of tablet 00:00: mouth in [place] the Medical morning. Branch phentermine 2023-0 Yes 37.5mg Take 37.5 Univers 37.5 mg 1-03 mg by ity of tablet 00:00: mouth in [place] the Medical morning. Branch phentermine 2023-0 Yes 37.5mg Take 37.5 Univers 37.5 mg 1-03 mg by ity of tablet 00:00: mouth in [place] the Medical morning. Branch phentermine 2023-0 Yes 37.5mg Take 37.5 Univers 37.5 mg 1-03 mg by ity of tablet 00:00: mouth in [place] the Medical morning. Branch phentermine 2023-0 Yes 37.5mg Take 37.5 Univers 37.5 mg 1-03 mg by ity of tablet 00:00: mouth in [place] the Medical morning. Branch phentermine 2023-0 Yes 37.5mg Take 37.5 Univers 37.5 mg 1-03 mg by ity of tablet 00:00: mouth in [place] the Medical morning. Branch phentermine 2023-0 Yes 37.5mg Take 37.5 Univers 37.5 mg 1-03 mg by ity of tablet 00:00: mouth in [place] the Medical morning. Branch phentermine 2023-0 Yes 37.5mg Take 37.5 Univers 37.5 mg 1-03 mg by ity of tablet 00:00: mouth in [place] 00 the Medical morning. Branch phentermine 2023-0 Yes 37.5mg Take 37.5 Univers 37.5 mg 1-03 mg by ity of tablet 00:00: mouth in [place] 00 the Medical morning. Branch phentermine 2023-0 Yes 37.5mg Take 37.5 Univers 37.5 mg 1-03 mg by ity of tablet 00:00: mouth in [place] 00 the Medical morning. Branch phentermine Yes 37.5mg Take 37.5 Univers 37.5 mg 1-03 mg by ity of tablet 00:00: mouth in [place] 00 the morning. Branch intrauterin Yes 1{IUD} 1 Intra U nivers e device 5-19 Uterine ity of (PARAGARD T 13:04: Device by [place] 380A) IUD 54 Intrauteri Medi gabriel ne route Branch once now. intrauterin Yes 1{IUD} 1 Intra U nivers e device 5-19 Uterine ity of (PARAGARD T 13:04: Device by [place] 380A) IUD 54 Intrauteri Medi gabriel ne route Branch once now. MethylPREDN MethylPREDN No MethylPRED ISolone 4 ISolone 4 05-16 NISolone 4 MG MG 00:00: MG 00 methylPREDN methylPREDN No methylPRED ISolone 4 ISolone 4 05-16 NISolone 4 [...] 2019-04 No 1{table QD Aspirin MG MG 1-18 t} 325 MG 00:00: 00 Aspirin 325 Aspirin 325 2019-04 No 1{table QD Aspirin MG MG 1-18 t} 325 MG 00:00: 00 Aspirin 325 Aspirin 325 2019-04 No 1{table QD Aspirin MG MG 1-18 t} 325 MG 00:00: 00 Aspirin 325 Aspirin 325 2019-04 No 1{table QD Aspirin MG MG 1-18 t} 325 MG 00:00: 00 Acetaminoph Acetaminoph 2019-04 2020- No 1{table BID Acetaminop en 500 MG en 500 MG 05-06 t_as_ne hen 500 MG 00:00: 00:00 eded} 00 :00 dicyclomine Yes 10mg Take 1 Univ ers (BENTYL) 10 4-30 capsule by it y of mg capsule 00:00: [place] (four) Medical times Branch daily. dicyclomine 2022- No 10mg Take 1 Uni vers (BENTYL) 10 430 01-10 capsule by i ty of mg capsule 00:00: 00:00 mouth 4 [place] 00 :00 (four) Medical times Branch daily. dicyclomine 2022- No 10mg Take 1 Uni vers (BENTYL) 10 4-30 01-10 capsule by i ty of mg capsule 00:00: 00:00 mouth 4 [place] 00 :00 (four) Medical times Branch daily. dicyclomine 2022- No 10mg Take 1 Uni vers (BENTYL) 10 430 01-10 capsule by i ty of mg capsule 00:00: 00:00 mouth 4 [place] 00 :00 (four) Medical times Branch daily. Sumatriptan Sumatriptan No BID Sumatripta Succinate Succinate [...] one 0.5 % cation} sone 0.5 % SUMAtriptan SUMAtriptan No BID SUMAtripta Succinate Succinate n 50 MG 50 MG Succinate 50 MG Magnesium Magnesium No 2{table QD Magnesium 200 MG 200 MG ts_with 200 MG _a_meal } Hydrocortis Hydrocortis No 1{appli BID Hydrocorti one 0.5 % one 0.5 % cation} sone 0.5 % Terbinafine Terbinafine No 1{appli QD Terbinafin HCl 1 % HCl 1 % cation} e HCl 1 % Immunizations Ordered Immunization Filled Immunization Date Status Commen ts Source Name Name TDAP (ADACEL) 2016-12-24 Completed University of VACCINE 00:00:00 [facility] Branch TDAP (ADACEL) 2016-12-24 Completed University of VACCINE 00:00:00 [facility] Branch TDAP (ADACEL) 2016-12-24 Completed University of VACCINE 00:00:00 [facility] Branch TDAP (ADACEL) 2016-12-24 Completed University of VACCINE 00:00:00 [facility] Branch TDAP (ADACEL) 2016-12-24 Completed University of VACCINE 00:00:00 [facility] Branch TDAP (ADACEL) 2016-12-24 Completed University of VACCINE 00:00:00 [facility] Branch TDAP (ADACEL) 2016-12-24 Completed University of VACCINE 00:00:00 [facility] Branch TDAP (ADACEL) 2016-12-24 Completed University of VACCINE 00:00:00 [facility] Branch TDAP (ADACEL) 2016-12-24 Completed University of VACCINE 00:00:00 [facility] Branch TDAP (ADACEL) 2016-12-24 Completed University of VACCINE 00:00:00 [facility] Branch TDAP (ADACEL) 2016-12-24 Completed University of VACCINE 00:00:00 [place] [facility] TDAP (ADACEL) 2016-12-24 Completed University of VACCINE 00:00:00 [place] [facility] TDAP (ADACEL) 2016-12-24 Completed University of VACCINE 00:00:00 [facility] Branch TDAP (ADACEL) 2016-12-24 Completed University of VACCINE 00:00:00 [place] [facility] Branch TDAP (ADACEL) 2016-12-24 Completed University of VACCINE 00:00:00 [facility] Branch TDAP (ADACEL) 2016-12-24 Completed University of VACCINE 00:00:00 [place] [facility] TDAP (ADACEL) 2016-12-24 Completed University of VACCINE 00:00:00 [place] [facility] TDAP (ADACEL) 2016-12-24 Completed University of VACCINE 00:00:00 [place] [facility] TDAP (ADACEL) 2016-12-24 Completed University of VACCINE 00:00:00 [place] [facility] TDAP (ADACEL) 2016-12-24 Completed University of VACCINE 00:00:00 [place] [facility] TDAP (ADACEL) 2016-12-24 Completed University of VACCINE 00:00:00 [place] [facility] TDAP (ADACEL) 2016-12-24 Completed University of VACCINE 00:00:00 [place] [facility] TDAP (ADACEL) 2016-12-24 Completed University of VACCINE 00:00:00 [place] [facility] TDAP (ADACEL) 2016-12-24 Completed University of VACCINE 00:00:00 [facility] Branch TDAP (ADACEL) 2016-12-24 Completed University of VACCINE 00:00:00 [facility] Branch TDAP (ADACEL) 2016-12-24 Completed University of VACCINE 00:00:00 [place] [facility] TDAP (ADACEL) 2016-12-24 Completed University of VACCINE 00:00:00 [place] [facility] TDAP (ADACEL) 2016-12-24 Completed University of VACCINE 00:00:00 [place] [facility] TDAP (ADACEL) 2016-12-24 Completed University of VACCINE 00:00:00 [place] [facility] TDAP (ADACEL) 2016-12-24 Completed University of VACCINE 00:00:00 [place] [facility] TDAP (ADACEL) 2016-12-24 Completed [facility] VACCINE 00:00:00 [facility] TDAP (ADACEL) 2016-12-24 Completed [facility] VACCINE 00:00:00 [facility] TDAP (ADACEL) 2016-12-24 Completed [facility] VACCINE 00:00:00 [facility] TDAP (ADACEL) 2016-12-24 Completed [facility] VACCINE 00:00:00 [facility] TDAP (ADACEL) 2016-12-24 Completed [facility] VACCINE 00:00:00 [facility] TDAP (ADACEL) 2016-12-24 Completed [facility] VACCINE 00:00:00 [facility] TDAP (ADACEL) 2016-12-24 Completed [facility] VACCINE 00:00:00 [facility] TDAP (ADACEL) 2016-12-24 Completed [facility] VACCINE 00:00:00 [facility] TDAP (ADACEL) 2016-12-24 Completed [facility] VACCINE 00:00:00 [facility] TDAP (ADACEL) 2016-12-24 Completed [facility] VACCINE 00:00:00 [facility] TDAP (ADACEL) 2016-12-24 Completed [facility] VACCINE 00:00:00 [facility] TDAP (ADACEL) 2016-12-24 Completed [facility] VACCINE 00:00:00 [facility] TDAP 2012-08-29 Completed [facility] 00:00:00 [facility] TDAP 2012-08-29 Completed [facility] 00:00:00 [facility] TDAP 2012-08-29 Completed [facility] 00:00:00 [facility] TDAP 2012-08-29 Completed [facility] 00:00:00 [facility] TDAP 2012-08-29 Completed [facility] 00:00:00 [facility] TDAP 2012-08-29 Completed [facility] 00:00:00 [facility] TDAP 2012-08-29 Completed [facility] 00:00:00 [facility] TDAP 2012-08-29 Completed [facility] 00:00:00 [facility] TDAP 2012-08-29 Completed [facility] 00:00:00 [facility] TDAP 2012-08-29 Completed [facility] 00:00:00 [facility] TDAP 2012-08-29 Completed [facility] 00:00:00 [facility] TDAP 2012-08-29 Completed [facility] 00:00:00 [facility] TDAP 2012-08-29 Completed [facility] 00:00:00 [facility] TDAP 2012-08-29 Completed [facility] 00:00:00 [facility] TDAP 2012-08-29 Completed [facility] 00:00:00 [facility] TDAP 2012-08-29 Completed [facility] 00:00:00 [facility] TDAP 2012-08-29 Completed [facility] 00:00:00 [facility] TDAP 2012-08-29 Completed [facility] 00:00:00 [facility] TDAP 2012-08-29 Completed [facility] 00:00:00 [facility] TDAP 2012-08-29 Completed [facility] 00:00:00 [facility] TDAP 2012-08-29 Completed [facility] 00:00:00 [facility] TDAP 2012-08-29 Completed [facility] 00:00:00 [facility] TDAP 2012-08-29 Completed [facility] 00:00:00 [facility] TDAP 2012-08-29 Completed [facility] 00:00:00 [facility] TDAP 2012-08-29 Completed [facility] 00:00:00 [facility] TDAP 2012-08-29 Completed [facility] 00:00:00 [facility] TDAP 2012-08-29 Completed [facility] 00:00:00 [facility] TDAP 2012-08-29 Completed [facility] 00:00:00 [facility] TDAP 2012-08-29 Completed [facility] 00:00:00 [facility] TDAP 2012-08-29 Completed [facility] 00:00:00 [facility] TDAP 2012-08-29 Completed [facility] 00:00:00 [facility] TDAP 2012-08-29 Completed [facility] 00:00:00 [facility] TDAP 2012-08-29 Completed [facility] 00:00:00 [facility] TDAP 2012-08-29 Completed [facility] 00:00:00 [facility] TDAP 2012-08-29 Completed [facility] 00:00:00 [facility] TDAP 2012-08-29 Completed [facility] 00:00:00 [facility] TDAP 2012-08-29 Completed [facility] 00:00:00 [facility] TDAP 2012-08-29 Completed [facility] 00:00:00 [facility] TDAP 2012-08-29 Completed [facility] 00:00:00 [facility] TDAP 2012-08-29 Completed [facility] 00:00:00 [facility] TDAP 2012-08-29 Completed [facility] 00:00:00 [facility] TDAP 2012-08-29 Completed [facility] 00:00:00 [facility] Rubella 2012-01-19 Completed [facility] 00:00:00 [facility] Rubella 2012-01-19 Completed [facility] 00:00:00 [facility] Rubella 2012-01-19 Completed [facility] 00:00:00 [facility] Rubella 2012-01-19 Completed [facility] 00:00:00 [facility] Rubella 2012-01-19 Completed [facility] 00:00:00 [facility] Rubella 2012-01-19 Completed [facility] 00:00:00 [facility] Rubella 2012-01-19 Completed [facility] 00:00:00 [facility] Rubella 2012-01-19 Completed [facility] 00:00:00 [facility] Rubella 2012-01-19 Completed [facility] 00:00:00 [facility] Rubella 2012-01-19 Completed [facility] 00:00:00 [facility] Rubella 2012-01-19 Completed [facility] 00:00:00 [facility] Rubella 2012-01-19 Completed [facility] 00:00:00 [facility] Rubella 2012-01-19 Completed [facility] 00:00:00 [facility] Rubella 2012-01-19 Completed [facility] 00:00:00 [facility] Rubella 2012-01-19 Completed [facility] 00:00:00 [facility] Rubella 2012-01-19 Completed [facility] 00:00:00 [facility] Rubella 2012-01-19 Completed [facility] 00:00:00 [facility] Rubella 2012-01-19 Completed [facility] 00:00:00 [facility] Rubella 2012-01-19 Completed [facility] 00:00:00 [facility] Rubella 2012-01-19 Completed [facility] 00:00:00 [facility] Rubella 2012-01-19 Completed [facility] 00:00:00 [facility] Rubella 2012-01-19 Completed [facility] 00:00:00 [facility] Rubella 2012-01-19 Completed [facility] 00:00:00 [facility] Rubella 2012-01-19 Completed [facility] 00:00:00 [facility] Rubella 2012-01-19 Completed [facility] 00:00:00 [facility] Rubella 2012-01-19 Completed [facility] 00:00:00 [facility] Rubella 2012-01-19 Completed [facility] 00:00:00 [facility] Rubella 2012-01-19 Completed [facility] 00:00:00 [facility] Rubella 2012-01-19 Completed [facility] 00:00:00 [facility] Rubella 2012-01-19 Completed [facility] 00:00:00 [facility] Rubella 2012-01-19 Completed [facility] 00:00:00 [facility] Rubella 2012-01-19 Completed [facility] 00:00:00 [facility] Rubella 2012-01-19 Completed [facility] 00:00:00 [facility] Rubella 2012-01-19 Completed [facility] 00:00:00 [facility] Rubella 2012-01-19 Completed [facility] 00:00:00 [facility] Rubella 2012-01-19 Completed [facility] 00:00:00 [facility] Rubella 2012-01-19 Completed [facility] 00:00:00 [facility] Rubella 2012-01-19 Completed [facility] of 00:00:00 [facility] Rubella 2012-01-19 Completed [facility] of 00:00:00 [facility] Rubella 2012-01-19 Completed [facility] of 00:00:00 [facility] Rubella 2012-01-19 Completed [facility] of 00:00:00 [facility] Rubella 2012-01-19 Completed [facility] 00:00:00 [facility] Influenza Virus 2007-03-23 Completed Universit y of Vaccine - Whole 00:00:00 [facility] HPV 2007-03-23 Completed [facility] of 00:00:00 [facility] Influenza Virus 2007-03-23 Completed Universit y of Vaccine - Whole 00:00:00 [facility] HPV 2007-03-23 Completed [facility] of 00:00:00 [facility] Influenza Virus 2007-03-23 Completed Universit y of Vaccine - Whole 00:00:00 [facility] HPV 2007-03-23 Completed [facility] of 00:00:00 [facility] Influenza Virus 2007-03-23 Completed Universit y of Vaccine - Whole 00:00:00 [facility] HPV 2007-03-23 Completed [facility] of 00:00:00 [facility] Influenza Virus 2007-03-23 Completed Universit y of Vaccine - Whole 00:00:00 [facility] HPV 2007-03-23 Completed [facility] of 00:00:00 [facility] Influenza Virus 2007-03-23 Completed Universit y of Vaccine - Whole 00:00:00 [facility] HPV 2007-03-23 Completed [facility] of 00:00:00 [facility] Influenza Virus 2007-03-23 Completed Universit y of Vaccine - Whole 00:00:00 [facility] HPV 2007-03-23 Completed [facility] of 00:00:00 [facility] Influenza Virus 2007-03-23 Completed Universit y of Vaccine - Whole 00:00:00 [facility] HPV 2007-03-23 Completed [facility] of 00:00:00 [facility] Influenza Virus 2007-03-23 Completed Universit y of Vaccine - Whole 00:00:00 [facility] HPV 2007-03-23 Completed [facility] of 00:00:00 [facility] Influenza Virus 2007-03-23 Completed Universit y of Vaccine - Whole 00:00:00 [facility] HPV 2007-03-23 Completed [facility] of 00:00:00 [facility] Influenza Virus 2007-03-23 Completed Universit y of Vaccine - Whole 00:00:00 [facility] HPV 2007-03-23 Completed [facility] of 00:00:00 [facility] Influenza Virus 2007-03-23 Completed Universit y of Vaccine - Whole 00:00:00 [facility] HPV 2007-03-23 Completed [facility] of 00:00:00 [facility] HPV 2006-11-17 Completed [facility] of 00:00:00 [facility] HPV 2006-11-17 Completed [facility] of 00:00:00 [facility] HPV 2006-11-17 Completed [facility] of 00:00:00 [facility] HPV 2006-11-17 Completed [facility] of 00:00:00 [facility] HPV 2006-11-17 Completed [facility] of 00:00:00 [facility] HPV 2006-11-17 Completed [facility] 00:00:00 [facility] HPV 2006-11-17 Completed [facility] 00:00:00 [facility] HPV 2006-11-17 Completed [facility] of 00:00:00 [facility] HPV 2006-11-17 Completed [facility] of 00:00:00 [facility] HPV 2006-11-17 Completed [facility] of 00:00:00 [facility] HPV 2006-11-17 Completed [facility] of 00:00:00 [facility] HPV 2006-11-17 Completed [facility] of 00:00:00 [facility] HPV 2006-06-30 Completed [facility] 00:00:00 [facility] HPV 2006-06-30 Completed [facility] 00:00:00 [facility] HPV 2006-06-30 Completed [facility] 00:00:00 [facility] HPV 2006-06-30 Completed [facility] 00:00:00 [facility] HPV 2006-06-30 Completed [facility] 00:00:00 [facility] HPV 2006-06-30 Completed [facility] 00:00:00 [facility] HPV 2006-06-30 Completed [facility] 00:00:00 [facility] HPV 2006-06-30 Completed [facility] 00:00:00 [facility] HPV 2006-06-30 Completed [facility] 00:00:00 [facility] HPV 2006-06-30 Completed [facility] 00:00:00 [facility] HPV 2006-06-30 Completed [facility] of 00:00:00 [facility] HPV 2006-06-30 Completed [facility] of 00:00:00 [facility] HEPATITIS A 2006-05-20 Completed [facility] of 00:00:00 [facility] HEPATITIS A 2006-05-20 Completed [facility] of 00:00:00 [facility] HEPATITIS A 2006-05-20 Completed [facility] of 00:00:00 [facility] HEPATITIS A 2006-05-20 Completed [facility] of 00:00:00 [facility] HEPATITIS A 2006-05-20 Completed [facility] of 00:00:00 [facility] HEPATITIS A 2006-05-20 Completed [facility] of 00:00:00 [facility] HEPATITIS A 2006-05-20 Completed [facility] of 00:00:00 [facility] HEPATITIS A 2006-05-20 Completed [facility] of 00:00:00 [facility] HEPATITIS A 2006-05-20 Completed [facility] of 00:00:00 [facility] HEPATITIS A 2006-05-20 Completed [facility] of 00:00:00 [facility] HEPATITIS A 2006-05-20 Completed [facility] of 00:00:00 [facility] HEPATITIS A 2006-05-20 Completed [facility] of 00:00:00 [facility] HEPATITIS A 2005-11-02 Completed [facility] of 00:00:00 [facility] Meningococcal 2005-11-02 Completed University of Vaccine 00:00:00 [facility] HEPATITIS A 2005-11-02 Completed [facility] of 00:00:00 [facility] Meningococcal 2005-11-02 Completed University of Vaccine 00:00:00 [facility] HEPATITIS A 2005-11-02 Completed [facility] of 00:00:00 [facility] Meningococcal 2005-11-02 Completed University of Vaccine 00:00:00 [facility] HEPATITIS A 2005-11-02 Completed [facility] of 00:00:00 [facility] Meningococcal 2005-11-02 Completed University of Vaccine 00:00:00 [facility] HEPATITIS A 2005-11-02 Completed [facility] of 00:00:00 [facility] Meningococcal 2005-11-02 Completed University of Vaccine 00:00:00 [facility] HEPATITIS A 2005-11-02 Completed [facility] of 00:00:00 [facility] Meningococcal 2005-11-02 Completed [facility] of Vaccine 00:00:00 [facility] HEPATITIS A 2005-11-02 Completed [facility] of 00:00:00 [facility] Meningococcal 2005-11-02 Completed [facility] of Vaccine 00:00:00 [facility] HEPATITIS A 2005-11-02 Completed [facility] 00:00:00 [facility] Meningococcal 2005-11-02 Completed [facility] of Vaccine 00:00:00 [facility] HEPATITIS A 2005-11-02 Completed [facility] 00:00:00 [facility] Meningococcal 2005-11-02 Completed [facility] of Vaccine 00:00:00 [facility] HEPATITIS A 2005-11-02 Completed [facility] 00:00:00 [facility] Meningococcal 2005-11-02 Completed [facility] of Vaccine 00:00:00 [facility] HEPATITIS A 2005-11-02 Completed [facility] 00:00:00 [facility] Meningococcal 2005-11-02 Completed [facility] of Vaccine 00:00:00 [facility] HEPATITIS A 2005-11-02 Completed [facility] of 00:00:00 [facility] Meningococcal 2005-11-02 Completed [facility] of Vaccine 00:00:00 [facility] Vital Signs Vital Name Observation Time Observation Value Comments Source Systolic blood 2022-08-18 13:55:00 115 mm[Hg] Univer sity of pressure [facility] Diastolic blood 2022-08-18 13:55:00 71 mm[Hg] Unive rsity of [facility] Heart rate 2022-08-18 13:55:00 76 /min [facility] Body temperature 2022-08-18 13:55:00 35.72 Sheri [facility] Respiratory rate 2022-08-18 13:55:00 18 /min [facility] Body height 2022-08-18 13:55:00 162.6 cm [facility] Body weight 2022-08-18 13:55:00 71.578 kg [facility] BMI 2022-08-18 13:55:00 27.09 kg/m2 [facility] Systolic blood 2022-08-07 16:29:00 123 mm[Hg] Univer sity of pressure [facility] Diastolic blood 2022-08-07 16:29:00 73 mm[Hg] Unive rsity of pressure [facility] Heart rate 2022-08-07 16:29:00 79 /min [facility] Body temperature 2022-08-07 16:29:00 36.39 Sheri [facility] Respiratory rate 2022-08-07 16:29:00 18 /min Univ ersity of [facility] Body weight 2022-08-07 16:29:00 70.58 kg [facility] BMI 2022-08-07 16:29:00 26.71 kg/m2 [facility] Systolic blood 2022-06-23 15:39:00 115 mm[Hg] Univer sity of pressure [facility] Diastolic blood 2022-06-23 15:39:00 70 mm[Hg] Unive rsity of pressure [facility] Heart rate 2022-06-23 15:39:00 62 /min [facility] Body temperature 2022-06-23 15:39:00 37.17 Sheri [facility] Respiratory rate 2022-06-23 15:39:00 17 /min Univ ers[facility] Body height 2022-06-23 15:39:00 162.6 cm [facility] Body weight 2022-06-23 15:39:00 67.767 kg [facility] BMI 2022-06-23 15:39:00 25.64 kg/m2 [facility] Systolic blood 2022-05-26 15:15:00 116 mm[Hg] Univer sity of pressure [facility] Diastolic blood 2022-05-26 15:15:00 74 mm[Hg] Unive rsity of pressure [facility] Heart rate 2022-05-26 15:15:00 67 /min [facility] Body temperature 2022-05-26 15:15:00 36.28 Sheri [facility] Respiratory rate 2022-05-26 15:15:00 18 /min Univ ers[facility] Body height 2022-05-26 15:15:00 162.6 cm [facility] Body weight 2022-05-26 15:15:00 65.227 kg [facility] BMI 2022-05-26 15:15:00 24.68 kg/m2 [facility] Systolic blood 2022-05-11 16:12:00 130 mm[Hg] Univer sity of pressure [facility] Diastolic blood 2022-05-11 16:12:00 81 mm[Hg] Unive rsity of pressure [facility] Heart rate 2022-05-11 16:12:00 82 /min [facility] Body temperature 2022-05-11 16:12:00 35.78 Sheri [facility] Respiratory rate 2022-05-11 16:12:00 20 /min Univ [facility] Body height 2022-05-11 16:12:00 162.6 cm [facility] Body weight 2022-05-11 16:12:00 63.231 kg [facility] BMI 2022-05-11 16:12:00 23.93 kg/m2 [facility] Body height 2022-05-07 19:01:00 162.6 cm [facility] Body weight 2022-05-07 19:01:00 60.782 kg [facility] BMI 2022-05-07 19:01:00 23.00 kg/m2 [facility] BMI 2022-04-30 15:29:00 23.10 kg/m2 [facility] Systolic blood 2022-04-30 15:29:00 127 mm[Hg] Univer sity of pressure [facility] Diastolic blood 2022-04-30 15:29:00 77 mm[Hg] Unive rsity of pressure [facility] Heart rate 2022-04-30 15:29:00 84 /min [facility] Body temperature 2022-04-30 15:29:00 36.56 Sheri [facility] Respiratory rate 2022-04-30 15:29:00 18 /min Univ ers[facility] Body height 2022-04-30 15:29:00 162.6 cm [facility] Body weight 2022-04-30 15:29:00 61.054 kg [facility] Systolic blood 2022-04-28 16:50:00 114 mm[Hg] Univer sity of pressure [facility] Diastolic blood 2022-04-28 16:50:00 78 mm[Hg] Unive rsity of pressure [facility] Heart rate 2022-04-28 16:50:00 93 /min Universi ty [facility] Body temperature 2022-04-28 16:50:00 36.94 Sheri [facility] Respiratory rate 2022-04-28 16:50:00 17 /min [facility] Body height 2022-04-28 16:50:00 162.6 cm Universi ty [facility] Body weight 2022-04-28 16:50:00 61.462 kg Universi ty [facility] BMI 2022-04-28 16:50:00 23.26 kg/m2 Universi ty [facility] height 2022-04-06 09:00:00 64 [in_i] [facility] weight 2022-04-06 09:00:00 134 [lb_av] [facility] temperature 2022-04-06 09:00:00 97.2 [degF] [facility] bmi 2022-04-06 09:00:00 23 kg/m2 [facility] blood pressure 2022-04-06 09:00:00 122 mm[Hg] [facility] blood pressure 2022-04-06 09:00:00 68 mm[Hg] [facility] height 2020-05-16 08:20:00 64 [in_i] [facility] weight 2020-05-16 08:20:00 193.4 [lb_av] Common [facility] temperature 2020-05-16 08:20:00 98.4 [degF] Common [facility] bmi 2020-05-16 08:20:00 33.19 kg/m2 [facility] oximetry 2020-05-16 08:20:00 97 % Common [facility] respiratory rate 2020-05-16 08:20:00 15 /min [facility] blood pressure 2020-05-16 08:20:00 124 mm[Hg] [facility] blood pressure 2020-05-16 08:20:00 76 mm[Hg] Common [facility] - diastolic [facility] height 2020-03-06 08:00:00 64 [in_i] [facility] weight 2020-03-06 08:00:00 193.8 [lb_av] [facility] temperature 2020-03-06 08:00:00 96.6 [degF] [facility] bmi 2020-03-06 08:00:00 33.26 kg/m2 [facility] oximetry 2020-03-06 08:00:00 99 % [facility] respiratory rate 2020-03-06 08:00:00 18 /min [facility] blood pressure 2020-03-06 08:00:00 139 mm[Hg] Common [facility] - systolic [facility] blood pressure 2020-03-06 08:00:00 73 mm[Hg] [facility] diastolic [facility] Procedures Procedure Date / Time Performing Clinician Source Performed POCT URINALYSIS 2022-08-18 13:57:00 Bernarda Sylvester [facility] POCT URINALYSIS 2022-08-07 16:50:00 Bernarda Sylvester [facility] PATIENT FINANCIAL 2022-06-23 14:46:44 Doctor Unassigned, No [facility] POCT URINALYSIS 2022-06-23 00:00:00 Bernarda Sylvester [facility] SECOND AND THIRD 2022-06-10 16:55:[address] [facility] PATIENT QUESTIONNAIRE 2022-06-10 06:01:00 Doctor Unassigned, No [facility] URINE CULTURE 2022-05-26 17:29:00 Bernarda Sylvester [facility] POCT URINALYSIS 2022-05-26 15:18:00 Bernarda Sylvester [facility] POCT URINALYSIS W/O 2022-04-28 16:44:00 Bernarda Sylvester [facility] vers[facility] POCT TEST 2022-04-28 16:43:00 Bernarda Sylvester [facility] ASSIGNMENT OF BENEFITS 2022-04-28 14:59:12 Doctor Unassigned, No [facility] Encounters Start End Encounter Admission Attending Care Care Encounter Source Date/Time Date/Time Type Type Clinicians Facility Department ID 2022-04-06 Outpatient Rodriguez, Na STLMLC ST[facility] [id number] Common 11:59:00 [facility] 2022-03-30 Outpatient Rodriguez, Na STLMLC STLMLC [id number] Common 11:36:01 [facility] 2021-05-14 Outpatient Rodriguez, Na STLMLC STLMLC [id number] Common 13:27:21 [id number] [facility] 2021-05-14 Outpatient Gilma, STLMLC STLMLC [id number] Common 12:26:12 Makenzie [id number] [facility] 2021-05-14 Outpatient Gilma, STLMLC STLMLC [id number] Common 12:25:54 Makenzie [id number] [facility] 2021-05-14 Outpatient Gilma, STLMLC STLMLC [id number] Common 12:16:14 Makenzie [id number] [facility] 2021-05-14 Outpatient STLMLC STLMLC [id number] Common 12:06:14 [id number] [facility] 2022-09-15 2022-09-15 Outpatient R AKINSIPE, [facility] [id number] Univers 10:00:00 10:00:00 BERNARDA patino [facility] 2022-08-18 2022-08-18 Outpatient R AKINSIPE, [facility] [id number] Univers 09:00:00 09:13:11 BERNARDA patino [facility] 2022-08-18 2022-08-18 Routine Akinsipe, [facility] 1.2.313.162 [id number] Univers 09:00:00 09:13:11 Bernarda C MONEY EXAMINER 350.1.13.10 ity of Visit REGIONAL 4.2.7.2.686 Anthony as MATERNAL [phone] [facility] & CHILD [address] [place] [address] 2022-08-07 2022-08-07 Outpatient R [facility] [id number] Univers 08:15:00 11:48:57 BERNARDA ity o f [facility] 2022-08-07 2022-08-07 Routine [facility] 1.2.241.378 [id number] Univers 08:15:00 11:48:57 Bernarda C MONEY EXAMINER 350.1.13.10 ity of Visit [facility] 4.2.7.2.686 Anthony as MATERNAL [phone] [facility] & [address] 2022-08-07 2022-08-07 Telephone [facility] 1.2.840.114 [id number] Univers 00:00:00 00:00:00 Bernarda C MONEY EXAMINER 350.1.13.10 ity of REGIONAL 4.2.7.2.686 Anthony as MATERNAL [phone] [facility] & [address] 2022-08-06 2022-08-06 Patternmaker Helper Ultras[facility] 1.2 .840.114 [id number] Univers 09:00:00 10:00:00 Visit Irasema Hi MONEY EXAMINER 350.1. 13.10 ity of REGIONAL 4.2.7.2.686 Anthony as MATERNAL [id number] [facility] [address] [facility] 2022-08-06 2022-08-06 Outpatient P ZACK [facility] [id number] Univers 09:00:00 09:00:00 CURT it y of SIRASEMA [facility] 2022-07-21 2022-07-21 [facility] [id number] Univers 08:00:00 08:40:52 BERNARDA ity o f [facility] 2022-07-102022-07-10 Refill [facility] 1.2.731.811 [id number] Univers 00:00:00 00:00:00 Bernarda C MONEY EXAMINER 350.1.13.10 ity of [facility] 4.2.7.2.686 Anthony as MATERNAL [id number] [facility] [address] [place] [address] 2022-07-06 2022-07-06 [facility] 1.2.008.225 [id number] Univers 00:00:00 00:00:00 Bernarda C MONEY EXAMINER 350.1.13.10 ity of [facility] 4.2.7.2.686 Anthony as MATERNAL [id number] [facility] & CHILD [address] [place] [address] 2022-06-23 2022-06-23 Routine [facility] 1.2.332.630 [id number] Univers 09:00:00 10:13:27 Bernarda C MONEY EXAMINER 350.1.13.10 ity of Visit [facility] 4.2.7.2.686 Anthony as MATERNAL [id number] [facility] & CHILD [address] [place] [address] 2022-06-23 2022-06-23 [facility] [id number] Univers 09:00:00 10:13:27 BERNARDA ity o f [facility] 2022-06-23 2022-06-23 Orders Doctor MARTINEZ 1.2.840.114 [id number] Univers 00:00:00 00:00:00 Only Unassigned, LEESA 350.1.13.10 ity of [place] [facility] 4.2.7.2.686 Anthony as [phone] [address] 2022-06-22 2022-06-22 Outpatient P [facility] [id number] Univers 10:15:00 10:15:00 ity of [facility] 2022-06-19 2022-06-19 [facility] 1.2.840.114 [id number] Univers 00:00:00 00:00:00 Bernarda C MONEY EXAMINER 350.1.13.10 ity of REGIONAL 4.2.7.2.686 Anthony as MATERNAL [id number] [facility] ical & CHILD 107 [facility] 2022-06-10 2022-06-10 Patternmaker Helper Lab, JulianaRmchp [facility] 1.2.840. 114 [id number] Univers 11:00:00 11:15:00 Visit Jose L Morales MONEY EXAMINER 350.1.13.10 ity of REGIONAL 4.2.7.2.686 Anthony as MATERNAL [phone] [facility] [address] [place] [address] 2022-06-10 2022-06-10 Outpatient P JOSE L MORALES [facility] [id number] Univers 11:00:00 11:00:00 [facility]-10 2022-06-10 Patternmaker Helper Ultrasound, [facility] 1.2 .840.114 [id number] Univers 10:15:00 10:26:38 Visit Jose L Morales MONEY EXAMINER 350.1.13.10 ity of REGIONAL 4.2.7.2.686 Anthony as MATERNAL [id number] [facility] [address] [facility] 2022-06-10 2022-06-10 Telephone Higinio [facility] 1.2.840.114 [id number] Univers 00:00:00 00:00:00 Bernarda Rollins MONEY EXAMINER 350.1.13.10 ity of REGIONAL 4.2.7.2.686 Anthony as MATERNAL [phone] [facility] & CHILD [address] [place] [address] 2022-06-10 2022-06-10 Orders Doctor MARTINEZ 1.2.840.114 [id number] Univers 00:00:00 00:00:00 Only Unassigned, LEESA 350.1.13.10 ity of [place] [facility] 4.2.7.2.686 Anthony as [phone] [address] 2022-05-29 2022-05-29 Outpatient P [facility] [id number] Univers 10:30:00 10:30:00 ity of [facility] 2022-05-29 2022-05-29 Telephone Higinio [facility] 1.2.840.114 [id number] Univers 00:00:00 00:00:00 Bernarda C MONEY EXAMINER 350.1.13.10 ity of REGIONAL 4.2.7.2.686 Anthony as MATERNAL [id number] [facility] [address] [place] [address] 2022-05-29 2022-05-29 Telephone [facility] 1.2.840.114 [id number] Univers 00:00:00 00:00:00 Bernarda C MONEY EXAMINER 350.1.13.10 ity of REGIONAL 4.2.7.2.686 Anthony as MATERNAL [id number] [facility] & [address] 2022-05-26 2022-05-26 Routine [facility] 1.2.052.824 [id number] Univers 09:00:00 09:48:00 Bernarda C MONEY EXAMINER 350.1.13.10 ity of Visit [facility] 4.2.7.2.686 Anthony as MATERNAL [id number] [facility] & [address] 2022-05-26 2022-05-26 [facility] [id number] Univers 09:00:00 09:48:00 BERNARDA olson o f [facility] 2022-05-11 2022-05-11 Outpatient R RAGHAVENDRA [facility] [id number] Univers 10:00:00 16:21:39 MARIANNE olson [facility] 2022-05-11 2022-05-11 Routine Trimester, [facility] 1.2.840.114 [id number] Univers 10:00:00 16:21:39 Marianne Galloway [facility] 350.1.13.10 ity of Visit CL[place] [phone] [address] 2022-05-07 2022-05-07 Outpatient R COLLEEN [facility] [id number] Univers 13:30:00 23:59:00 HOLLY wesley [facility] 2022-05-07 2022-05-07 [facility] 1.2.840.114 [id number] Univers 13:00:00 13:30:00 Visit [facility] 350.1.13.10 it y of [place] 4.2.7.2.686 Anthony as SANDRA?BLEA [id number] Dc richard [address] MED[facility] 2022-05-05 2022-05-05 Telephone [facility] 1.2.840.114 [id number] Univers 00:00:00 00:00:00 Bernarda C MONEY EXAMINER 350.1.13.10 ity of [facility] 4.2.7.2.686 Anthony as MATERNAL [id number] [facility] ical & CHILD [address] [place] [address] 2022-05-01 2022-05-01 Telephone [facility] 1.2.840.114 [id number] Univers 00:00:00 00:00:00 Bernarda C MONEY EXAMINER 350.1.13.10 ity of [facility] 4.2.7.2.686 Anthony as MATERNAL [id number] [facility] & [address] 2022-04-30 2022-04-30 Outpatient [facility] [id number] Univers 09:30:00 10:26:08 MARIANNE ity [facility] 2022-04-30 2022-04-30 Routine Trimester, [facility] 1.2.840.114 [id number] Univers 09:30:00 10:26:08 Marianne Galloway [facility] 350.1.13.10 ity of Visit CL[place] [id number] [address] 2022-04-28 2022-04-28 Initial [facility] 1.2.018.126 [id number] Univers 09:30:00 11:14:43 Bernarda C MONEY EXAMINER 350.1.13.10 ity of Visit [facility] 4.2.7.2.686 Anthony as MATERNAL [id number] [facility] & CHILD [address] [place] [address] 2022-04-28 2022-04-28 Outpatient [facility] [id number] Univers 08:30:00 10:33:56 BERNARDA ity o f [facility] 2022-04-28 2022-04-28 Office [facility] 1.2.858.065 [id number] Univers 09:00:00 09:15:00 Visit Bernarda Rollins MONEY EXAMINER 350.1.13.10 ity of [facility] 4.2.7.2.686 Anthony as MATERNAL [id number] Med ical & CHILD [address] [place] [address] 2022-04-28 2022-04-28 Outpatient [facility] [id number] Univers 09:00:00 09:00:00 BERNARDA patino [facility] 2022-04-28 2022-04-28 Orders Doctor MICHELLE 1.2.840.114 [id number] Univers 00:00:00 00:00:00 Only Unassigned, LEESA 350.1.13.10 ity of [place] [facility] 4.2.7.2.686 Anthony as [id number] [address] 2022-04-06 2022-04-06 OFFICE STLMLC STLMLC [id number] Co mmon 00:00:00 00:00:00 VISIT NEW Spir it PT LEVEL 3 - [facility] 2020-09-04 2020-09-04 Outpatient [facility] [id number] Univers 12:45:00 12:45:00 BERNARDA patino [facility] 2020-06-07 2020-06-07 (TEL) STLMLC STLMLC [id number] Co mmon 00:00:00 00:00:00 Spirit - [facility] 2020-05-16 2020-05-16 OFFICE STLMLC STLMLC [id number] Co mmon 00:00:00 00:00:00 VISIT Spirit ESTAB PT - CH[facility] LEVEL 2 [facility] 2020-03-06 2020-03-06 OFFICE STLMLC STLMLC [id number] Co mmon 00:00:00 00:00:00 VISIT NEW Spir it PT LEVEL 3 - [facility] Results Test Description Test Time Test Comments Results Result Comments Source POCT URINALYSIS W SPECIFIC GRAVITY 2022-08-18 13:57:00 Test Item Value Reference Range Interpretation Comme nts POCT U SP GRAV (test code = 3255) . 1.005-1.025 POCT PH U (test code = 3254) . 5-8 POCT U LEUK EST (test code = 3263) . Negative - Negative POCT U NIT (test code = 3262) . Negative - Negative POCT U PROT (test code = 3259) TRACE Negative - Negative POCT U GLU (test code = 3256) NEG Negative - Negative POCT U KETONE (test code = 3258) . Negative - Negative POCT U UROBILI (test code = 3260) . 0.2-1 POCT U BILI (test code = 3261) . Negative - Negative POCT U BLD (test code = 3257) . Negative - Negative POCT U COLOR (test code = 3266) . POCT U APPEAR (test code = 3267) . [facility] URINALYSIS W SPECIFIC [id number] 13:57:00 Test Item Value Reference Range Interpretation Comments POCT U SP GRAV (test code = 3255) . 1.005-1.025 POCT PH U (test code = 3254) . 5-8 POCT U LEUK EST (test code = 3263) . Negative - Negative POCT U NIT (test code = 3262) . Negative - Negative POCT U PROT (test code = 3259) TRACE Negative - Negative POCT U GLU (test code = 3256) NEG Negative - Negative POCT U KETONE (test code = 3258) . Negative - Negative POCT U UROBILI (test code = 3260) . 0.2-1 POCT U BILI (test code = 3261) . Negative - Negative POCT U BLD (test code = 3257) . Negative - Negative POCT U COLOR (test code = 3266) . POCT U APPEAR (test code = 3267) . [facility] URINALYSIS W SPECIFIC [id number] 13:57:00 Test Item Value Reference Range Interpretation Comments POCT U SP GRAV (test code = 3255) . 1.005-1.025 POCT PH U (test code = 3254) . 5-8 POCT U LEUK EST (test code = 3263) . Negative - Negative POCT U NIT (test code = 3262) . Negative - Negative POCT U PROT (test code = 3259) TRACE Negative - Negative POCT U GLU (test code = 3256) NEG Negative - Negative POCT U KETONE (test code = 3258) . Negative - Negative POCT U UROBILI (test code = 3260) . 0.2-1 POCT U BILI (test code = 3261) . Negative - Negative POCT U BLD (test code = 3257) . Negative - Negative POCT U COLOR (test code = 3266) . POCT U APPEAR (test code = 3267) . [facility] URINALYSIS W SPECIFIC [id number] 16:50:00 Test Item Value Reference Range Interpretation Comments POCT U SP GRAV (test code = 3255) . 1.005-1.025 POCT PH U (test code = 3254) . 5-8 POCT U LEUK EST (test code = 3263) . Negative - Negative POCT U NIT (test code = 3262) . Negative - Negative POCT U PROT (test code = 3259) Trace Negative - Negative POCT U GLU (test code = 3256) Neg Negative - Negative POCT U KETONE (test code = 3258) . Negative - Negative POCT U UROBILI (test code = 3260) . 0.2-1 POCT U BILI (test code = 3261) . Negative - Negative POCT U BLD (test code = 3257) . Negative - Negative POCT U COLOR (test code = 3266) . POCT U APPEAR (test code = 3267) [facility] URINALYSIS W SPECIFIC [id number] 15:42:00 Test Item Value Reference Range Interpretation Comments POCT U SP GRAV (test code = . 1.005-1.025 3255) POCT PH U (test code = 3254) . 5-8 POCT U LEUK EST (test code = . Negative - Negative 3263) POCT U NIT (test code = 3262) . Negative - Negative POCT U PROT (test code = 3259) trace Negative - Negative POCT U GLU (test code = 3256) negative Negative - Negative POCT U KETONE (test code = 3258) . Negative - Negative POCT U UROBILI (test code = . 0.2-1 3260) POCT U BILI (test code = 3261) . Negative - Negative POCT U BLD (test code = 3257) . Negative - Negative POCT U COLOR (test code = 3266) . POCT U APPEAR (test code = 3267) . [facility] URINALYSIS W SPECIFIC [id number] 15:42:00 Test Item Value Reference Range Interpretation Comments POCT U SP GRAV (test code = . 1.005-1.025 3255) POCT PH U (test code = 3254) . 5-8 POCT U LEUK EST (test code = . Negative - Negative 3263) POCT U NIT (test code = 3262) . Negative - Negative POCT U PROT (test code = 3259) trace Negative - Negative POCT U GLU (test code = 3256) negative Negative - Negative POCT U KETONE (test code = 3258) . Negative - Negative POCT U UROBILI (test code = . 0.2-1 3260) POCT U BILI (test code = 3261) . Negative - Negative POCT U BLD (test code = 3257) . Negative - Negative POCT U COLOR (test code = 3266) . POCT U APPEAR (test code = 3267) . [facility] URINALYSIS W SPECIFIC [id number] 15:18:00 Test Item Value Reference Range Interpretation Comments POCT U SP GRAV (test code = 3255) . 1.005-1.025 POCT PH U (test code = 3254) . 5-8 POCT U LEUK EST (test code = 3263) . Negative - Negative POCT U NIT (test code = 3262) . Negative - Negative POCT U PROT (test code = 3259) 1+ Negative - Negative POCT U GLU (test code = 3256) neg Negative - Negative POCT U KETONE (test code = 3258) . Negative - Negative POCT U UROBILI (test code = 3260) . 0.2-1 POCT U BILI (test code = 3261) . Negative - Negative POCT U BLD (test code = 3257) . Negative - Negative POCT U COLOR (test code = 3266) . POCT U APPEAR (test code = 3267) . [facility] URINALYSIS W SPECIFIC [id number] 15:18:00 Test Item Value Reference Range Interpretation Comments POCT U SP GRAV (test code = 3255) . 1.005-1.025 POCT PH U (test code = 3254) . 5-8 POCT U LEUK EST (test code = 3263) . Negative - Negative POCT U NIT (test code = 3262) . Negative - Negative POCT U PROT (test code = 3259) 1+ Negative - Negative POCT U GLU (test code = 3256) neg Negative - Negative POCT U KETONE (test code = 3258) . Negative - Negative POCT U UROBILI (test code = 3260) . 0.2-1 POCT U BILI (test code = 3261) . Negative - Negative POCT U BLD (test code = 3257) . Negative - Negative POCT U COLOR (test code = 3266) . POCT U APPEAR (test code = 3267) . [facility] URINALYSIS W SPECIFIC [id number] 15:18:00 Test Item Value Reference Range Interpretation Comments POCT U SP GRAV (test code = 3255) . 1.005-1.025 POCT PH U (test code = 3254) . 5-8 POCT U LEUK EST (test code = 3263) . Negative - Negative POCT U NIT (test code = 3262) . Negative - Negative POCT U PROT (test code = 3259) 1+ Negative - Negative POCT U GLU (test code = 3256) neg Negative - Negative POCT U KETONE (test code = 3258) . Negative - Negative POCT U UROBILI (test code = 3260) . 0.2-1 POCT U BILI (test code = 3261) . Negative - Negative POCT U BLD (test code = 3257) . Negative - Negative POCT U COLOR (test code = 3266) . POCT U APPEAR (test code = 3267) . [facility] [id number] 16:44:00 Test Item Value Reference Range Interpretation Comments POCT PREG (test code = 1605) Positive On board controls acceptable with C Yes Line (test code = 5499) POCT PREG LOT # (test code = 4641) POCT PREG TEST DATE (test code = 3576) [facility] [id number] 16:44:00 Test Item Value Reference Range Interpretation Comments POCT PH U (test code = 3254) 5 mg/dl 5-8 POCT U LEUK EST (test code = Trace Negative - Negative 3263) POCT U NIT (test code = 3262) Pos Negative - Negative POCT U PROT (test code = 3259) Trace Negative - Negative POCT U GLU (test code = 3256) Neg Negative - Negative POCT U KETONE (test code = 3258) None Negative - Negative POCT U BLD (test code = 3257) Trace Negative - Negative [facility]
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
--- NOTE | 2022-09-14 10:43 | ER ---
Nurse's Notes [facility] Name: Deja Washburn Age: 27 yrs Sex: Female : 1995 Arrival Date: 09/14/2022 Time: 10:25 Bed IW3 Private MD: Diagnosis: Allergic rhinitis, unspecified Presentation: 09/14 10:40 Chief complaint: Patient states: Sneezing, watery eyes, stuffy nose x 3 days. jl7 Coronavirus screen: At this time, the client does not indicate any symptoms associated with coronavirus-19. Ebola Screen: No symptoms or risks identified at this time. Onset of symptoms was September 12, 2022. 10:40 Method Of Arrival: Ambulatory jl7 10:40 Acuity: RICARDO 4 jl7 Triage Assessment: 10:41 General: Appears in no apparent distress. uncomfortable, Behavior is calm, cooperative, jl7 appropriate for age. Pain: Denies pain. Neuro: Level of Consciousness is awake, alert, obeys commands, Oriented to person, place, time, situation. Cardiovascular: Patient's skin is warm and dry. Respiratory: Airway is patent Respiratory effort is even, unlabored, Respiratory pattern is regular, symmetrical. Derm: Skin is pink, warm \T\ dry. 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 - Social history:: Smoking status: Patient denies any tobacco usage or history of. Vital Signs: 10:40 BP 119 / 88; Pulse 84; Resp 17; Temp 98.6; Pulse Ox 100% ; jl7 ED Course: 10:29 Patient arrived in ED. im 10:29 Babak Rachel MD is Attending Physician. bs3 10:41 Triage completed. jl7 10:41 Arm band placed on right wrist. jl7 10:46 Tia Palencia, ELBA is Primary Nurse. jl7 10:46 No provider procedures requiring assistance completed. Patient did not have IV access jl7 during this emergency room visit. Administered Medications: No medications were administered Outcome: 10:42 Discharge ordered by . bs3 10:46 Discharged to home ambulatory. jl7 10:46 Condition: stable 10:46 Discharge instructions given to patient, Instructed on discharge instructions, follow up and referral plans. medication usage, Demonstrated understanding of instructions, follow-up care, medications, Prescriptions given X 1. 10:47 Patient left the ED. jl7 Signatures: Tia Palencia RN RN jl7 Babak Rachel MD MD bs3 Sabi Santamaria
[2022-09-14 10:54] VITALS: BP 119/88; TEMP 98.6; O2SAT 100
== END 2022-09-14 10:47 | disposition home or self-care (01) ==
LOC: ER 10:25
DX: J30.9 Allergic rhinitis, unspecified (principal); Z88.1 Allergy status to other antibiotic agents
CPT/HCPCS: 99283